=== PATIENT | male | born 1980 | race Caucasian/White ===

== ENCOUNTER 2019-11-07 00:22 | Emergency (ER) | payer BC, OTHER ==
[2019-11-07 00:30] VITALS: BP 141/83
[2019-11-07] MEDS ORDERED: IBUPROFEN 800 MG TABLET PO ONE (00:42)
[2019-11-07] MEDS ORDERED: HYDROCODONE/ACETAMINOPHEN 5-325 MG (6 TAB/ER DISP) PO PRN (00:42)
--- NOTE | 2019-11-07 00:46 | ER Document Report ---
HPI - HPI Patient complains to provider of: Sunburn Time Seen by Provider: 11/07/19 00:42 Onset: Other - 2 days ago Onset/Duration: Worse Quality of pain: Sharp Pain Level: 5 Context: Patient states that he got sunburn 2 days ago after being out in the sun for 2 hours. Patient states that he has been applying aloe vera to his back. Patient states that today the pain became worse feeling like a sharp knife across the areas of his sunburn to the upper back and shoulder areas. Patient denies any fever. Patient denies any chest pain shortness of breath, nausea or vomiting. No cough or cold symptoms. Associated Symptoms: Other - Pain to sunburn areas Exacerbated by: Denies Relieved by: Denies Similar symptoms previously: No Recently seen / treated by doctor: No - ROS ROS below otherwise negative: Yes Systems Reviewed and Negative: Yes All other systems reviewed and negative - CONSTITUTIONAL Constitutional: DENIES: Fever - NEURO Neurology: DENIES: Headache - CARDIOVASCULAR Cardiovascular: DENIES: Chest pain - RESPIRATORY Respiratory: DENIES: Trouble Breathing, Coughing - GASTROINTESTINAL Gastrointestinal: DENIES: Nausea, Patient vomiting - MUSCULOSKELETAL Musculoskeletal: REPORTS: Back Pain. DENIES: Neck Pain - DERM Skin Color: Erythema Skin Problems: Burn - Sunburn Past Medical History - General Information source: Patient - Social History Smoking Status: Never Smoker Frequency of alcohol use: None Drug Abuse: None Lives with: Family Family History: Reviewed & Not Pertinent Psychiatric Medical History: Reports: Other - Previous conversion disorder Surgical Hx: Negative Vertical Provider Document - CONSTITUTIONAL Agree With Documented VS: Yes Exam Limitations: No Limitations General Appearance: WD/WN, No Apparent Distress - HEENT HEENT: Atraumatic, Normocephalic - NECK Neck: Normal Inspection, Supple. negative: Lymphadenopathy-Right - RESPIRATORY Respiratory: Breath Sounds Normal, No Respiratory Distress - CARDIOVASCULAR Cardiovascular: Regular Rate, Regular Rhythm, No Murmur - MUSCULOSKELETAL/EXTREMETIES Musculoskeletal/Extremeties: MAEW Notes: Patient occasionally tensing up muscles of upper back - NEURO Level of Consciousness: Awake, Alert, Appropriate Motor/Sensory: No Motor Deficit - DERM Integumentary: Warm, Dry Notes: First-degree burn to upper back and shoulder Course - Re-evaluation Re-evalutation: 11/07/19 00:44 Patient with first-degree burn to upper back and shoulder area, patient is tensing up muscles because of the tenderness. Discussed with patient concerned that he may have muscle strain in addition to his sunburn given the way he is positioning himself with the pain. Patient without any chest pain symptoms, no dyspnea. Patient nontoxic in appearance. 11/07/19 01:05 Patient does acknowledge having a previous conversion disorder in the past and is uncertain if this may be similar. Patient denies any chest pain or shortness of breath. Patient states pain is only in the location of his burn that does extend to the upper arm area as well bilaterally. Patient questioning as to why the pain is so severe. Offered patient additional lab work, x-ray imaging as well as EKG, and his concerns over the atypical presentation of his sunburn. Patient declines stating that if symptoms worsen or change he will return as needed. Given patient's history of previous conversion disorder suspect likely psychosomatic presentation - Vital Signs Vital signs: Temp Pulse Resp BP Pulse Ox 97.6 F 92 20 141/83 H 98 11/07/19 00:27 11/07/19 00:27 11/07/19 00:27 11/07/19 00:27 11/07/19 00:27 Discharge - Discharge Clinical Impression: Upper back pain, Sunburn Condition: Stable Disposition: HOME, SELF-CARE Instructions: Anti-Inflammatory Medication ([facility]), Muscle Relaxers ([facility]), Sunburn ([facility]), Upper Back Strain ([facility]) Additional Instructions: Return immediately for any new or worsening symptoms Followup with your primary care provider, call tomorrow to make a followup appointment Avoid any sun exposure Prescriptions: Cyclobenzaprine HCl [Flexeril 10 Mg Tablet] 10 mg PO TID #15 tablet Naproxen [Naprosyn 250 Nmg Tablet] 1 tab PO BID #14 tablet
== END 2019-11-07 01:00 | disposition home or self-care (01) ==
LOC: ER 00:22
DX: L55.0 Sunburn of first degree (principal)
CPT/HCPCS: 99283